=== PATIENT | female | born 1970 ===

== ENCOUNTER 2024-03-05 09:25 | Outpatient (CLI) | payer OTHER | END 2024-03-05 09:28 | disposition home or self-care (01) | LOC: SONOGRAMA 09:25 | PROVIDERS: ATTEND Pathology Anatomic Pathology & Clinical Pathology | DX: D34 Benign neoplasm of thyroid gland (principal); E05.10 Thyrotoxicosis with toxic single thyroid nodule without thyrotoxic crisis or storm; R51.0 Headache with orthostatic component, not elsewhere classified ==